=== PATIENT | male | born 1960 | race Caucasian/White ===

== ENCOUNTER 2023-07-01 07:29 | Day surgery (SDC) | payer OTHER ==
[~2023-07-01 07:29] MED LIST: Lactated Ringers 1,000 ML IV SCH
[2023-07-01] MEDS ORDERED: Propofol 200 MG/20 ML SDV ONE ×3 (09:05→09:48)
[2023-07-01] MEDS ORDERED: fentaNYL 100 MCG/2 ML SDV ONE (09:05)
[2023-07-01 10:50] VITALS: BP 128/80; PULSE 57
== END 2023-07-01 11:15 | disposition home or self-care (01) ==
LOC: VM.SDS 07:29
PROVIDERS: ATTEND Family Medicine
DX: Z12.11 Encounter for screening for malignant neoplasm of colon (principal); D12.0 Benign neoplasm of cecum; D12.6 Benign neoplasm of colon, unspecified; K63.2 Fistula of intestine; K57.30 Diverticulosis of large intestine without perforation or abscess without bleeding; R05.1 Acute cough; I10 Essential (primary) hypertension; E78.5 Hyperlipidemia, unspecified; E11.9 Type 2 diabetes mellitus without complications; K21.9 Gastro-esophageal reflux disease without esophagitis; Z79.82 Long term (current) use of aspirin; Z79.899 Other long term (current) drug therapy; Z79.84 Long term (current) use of oral hypoglycemic drugs
CPT/HCPCS: 00812; 45380; 82947; J2704; J3010; J7120